=== PATIENT | female | born 1990 | race Caucasian/White ===

== ENCOUNTER 2019-10-19 17:03 | Emergency (ER) | payer MEDICAID ==
[~2019-10-19] VITALS: Ht 167.6 cm; Wt 72.8 kg
[~2019-10-19 17:03] MED LIST: CETI-90 PO; DICY10CA88 PO; DOCU-20 PO; KEP500T PO; LEVO1TBD6 PO; MELA3TAB64 PO; OMEP20CA4 PO; ONDA4TAB12 PO; PANT20TA3 PO; VITA-268 PO
[2019-10-19 17:40] LABS: BASOPHILS % (AUTO) 0.1 % (0-1); LYMPHOCYTES # (AUTO) 0.9 X10'3 (1.1-4.8); MONOCYTES # (AUTO) 0.6 X10'3 (0-0.9)
[2019-10-19 17:42] LABS: EOSINOPHILS # (AUTO) 0.1 X10'3 (0-0.9); EOSINOPHILS % (AUTO) 0.4 % (0-6); HEMATOCRIT 42.6 % (35.0-45.0); HEMOGLOBIN 14.9 g/dl (12.0-16.0); LYMPHOCYTES % (AUTO) 4.7 % (21-51); MEAN CORPUSCULAR HEMOGLOBIN 30.8 PG (27.0-31.0); MEAN CORPUSCULAR HGB CONC 34.9 g/dL (33.0-36.5); MEAN CORPUSCULAR VOLUME 88.1 FL (78-98); MONOCYTES % (AUTO) 3.2 % (2-12); NEUTROPHILS # (AUTO) 17.7 X10'3 (1.8-7.7); NEUTROPHILS % (AUTO) 91.6 % (42-75); PLATELET COUNT 396 X10'3 (140-440); RED BLOOD COUNT 4.83 X10'6 (4.20-5.60); RED CELL DISTRIBUTION WIDTH 12.8 % (11.5-14.5); WHITE BLOOD COUNT 19.4 X10'3 (4.5-11.0)
[2019-10-19 17:57] LABS: ALANINE AMINOTRANSFERASE 25 U/L (12-78); ALBUMIN/GLOBULIN RATIO 1.2 (1.1-1.5); ALKALINE PHOSPHATASE 101 IU/L (46-116); ANION GAP 17 (8-16); ASPARTATE AMINO TRANSFERASE 16 U/L (10-37); BILIRUBIN,TOTAL 1.4 MG/DL (0.1-1.0); BLOOD UREA NITROGEN 16 MG/DL (7-18); BUN/CREATININE RATIO 13.3 (6.6-38.0); CALCIUM 10.5 MG/DL (8.5-10.1); CHLORIDE 107 MMOL/L (99-107); GLUCOSE 127 MG/DL (70-104); LIPASE 56 U/L (73-393); SODIUM 144 MMOL/L (135-145); TOTAL CARBON DIOXIDE 19.6 MMOL/L (24-32); TOTAL PROTEIN 9.2 G/DL (6.4-8.2); eGFR 53 ML/MIN
[2019-10-19] MEDS: diphenhydrAMINE 50 mg/ml inj IM ONE (19:34)
[2019-10-19] MEDS: haloperidol lactate 5mg/ml inj IM ONE (19:34)
[2019-10-19] MEDS: normal saline 1000ml 1,000 ML IV ONE (19:35)
--- NOTE | 2019-10-19 19:41 | NUR ---
PT GIVEN HALDOL 5 MG IM AND BENEDRYL 50 MG IV AND 1ST OF 2 LITERS INFUSING VIA BOLUS. PTS AT BEDSIDE. SHE REPORTS HE PAIN IS 5 OUT OF 10 TO MID ABDOMEN. VSS.
[2019-10-19] MEDS: normal saline 1000ML IV soln IVB ONE (19:46)
[2019-10-19 20:52] LABS: URINE HCG NEGATIVE (NEG)
[2019-10-19 20:58] LABS: CLARITY,URINE CLOUDY (Clear); COLOR,URINE AMBER (Yellow); GLUCOSE, URINE NEGATIVE (Neg); KETONES,URINE >=80 mg/dl (Neg); LEUKOCYTE ESTERASE ,URINE SMALL (Neg); NITRITES, URINE NEGATIVE (Neg); OCCULT BLOOD,URINE LARGE (Neg); PROTEIN,URINE 100 mg/dl (Neg); UROBILINOGEN,URINE 0.2 E.U/dL (0.2-1.0)
[2019-10-19 21:04] LABS: UA COLLECTION TYPE CLN CATCH MIDSTREAM
[2019-10-19 21:05] LABS: BACTERIA,URINE FEW /HPF (Neg); RBC,URINE 50-100 /HPF (0-2); SQUAMOUS EPITHELIAL CELL,UR MODERATE /LPF (FEW); WBC,URINE 0-4 /HPF (0-4)
[2019-10-19 21:06] LABS: MUCUS STRANDS MANY /LPF (Neg)
[2019-10-19] MEDS ORDERED: ONDA4TAB6 PO (21:27)
[2019-10-19 22:05] VITALS: BP 133/76
== END 2019-10-19 22:06 | disposition home or self-care (01) ==
LOC: ER 17:04
DX: R11.15 Cyclical vomiting syndrome unrelated to migraine (principal); R10.13 Epigastric pain; R10.31 Right lower quadrant pain; F12.90 Cannabis use, unspecified, uncomplicated; Z79.899 Other long term (current) drug therapy; Z88.1 Allergy status to other antibiotic agents; Z88.5 Allergy status to narcotic agent
CPT/HCPCS: 36415; 74176; 80053; 81001; 81025; 83690; 85025; 87088; 96361; 96372; 96374; 99284; J1200; J1630; J7030

== ENCOUNTER 2019-10-21 05:28 | Emergency (ER) | payer MEDICAID ==
[~2019-10-21] VITALS: Ht 167.6 cm; Wt 77.2 kg
[~2019-10-21 05:28] MED LIST changes: +ONDA4TAB6 PO
[2019-10-21] MEDS ORDERED: haloperidol lactate 5mg/ml inj IM ONE (05:45)
[2019-10-21] MEDS ORDERED: normal saline 1000ML IV soln IVB ONE (05:45)
[2019-10-21] MEDS ORDERED: ondansetron/PF 4mg/2ml inj IV ONE (05:45)
[2019-10-21] MEDS ORDERED: diphenhydrAMINE 50 mg/ml inj IV ONE (05:45)
[2019-10-21] MEDS ORDERED: LORazepam 2 mg/ml vial IV ONE (05:45)
[2019-10-21 06:09] LABS: BASOPHILS # (AUTO) 0.2 X10'3 (0-0.2); EOSINOPHILS % (AUTO) 0.1 % (0-6); HEMATOCRIT 40.2 % (35.0-45.0); LYMPHOCYTES # (AUTO) 3.5 X10'3 (1.1-4.8); LYMPHOCYTES % (AUTO) 35.6 % (21-51); MEAN CORPUSCULAR HEMOGLOBIN 30.7 PG (27.0-31.0); MEAN CORPUSCULAR HGB CONC 34.8 g/dL (33.0-36.5); MEAN CORPUSCULAR VOLUME 88.2 FL (78-98); MEAN PLATELET VOLUME 9.5 FL (7.4-10.4); MONOCYTES # (AUTO) 0.7 X10'3 (0-0.9); MONOCYTES % (AUTO) 7.5 % (2-12); NEUTROPHILS # (AUTO) 5.4 X10'3 (1.8-7.7); NEUTROPHILS % (AUTO) 54.8 % (42-75); PLATELET COUNT 344 X10'3 (140-440); RED BLOOD COUNT 4.56 X10'6 (4.20-5.60); RED CELL DISTRIBUTION WIDTH 12.9 % (11.5-14.5); WHITE BLOOD COUNT 9.8 X10'3 (4.5-11.0)
[2019-10-21 06:15] LABS: ALANINE AMINOTRANSFERASE 29 U/L (12-78); ALBUMIN 4.4 G/DL (3.4-5.0); ALBUMIN/GLOBULIN RATIO 1.2 (1.1-1.5); ALKALINE PHOSPHATASE 82 IU/L (46-116); ANION GAP 13 (8-16); ASPARTATE AMINO TRANSFERASE 23 U/L (10-37); BILIRUBIN,TOTAL 0.8 MG/DL (0.1-1.0); BLOOD UREA NITROGEN 10 MG/DL (7-18); BUN/CREATININE RATIO 9.8 (6.6-38.0); CALCIUM 9.8 MG/DL (8.5-10.1); CHLORIDE 107 MMOL/L (99-107); CREATININE 1.02 MG/DL (0.40-0.90); GLUCOSE 94 MG/DL (70-104); LIPASE 112 U/L (73-393); POTASSIUM 3.5 MMOL/L (3.5-5.1); SODIUM 142 MMOL/L (135-145); TOTAL CARBON DIOXIDE 21.6 MMOL/L (24-32); TOTAL PROTEIN 8.1 G/DL (6.4-8.2); eGFR 64 ML/MIN
[2019-10-21 06:58] LABS: URINE HCG NEGATIVE (NEG)
[2019-10-21] MEDS ORDERED: METO5TAB98 PO (07:12)
[2019-10-21 07:24] VITALS: BP 117/76
== END 2019-10-21 07:27 | disposition home or self-care (01) ==
LOC: ER 05:29
DX: R11.15 Cyclical vomiting syndrome unrelated to migraine (principal); R10.84 Generalized abdominal pain; F12.90 Cannabis use, unspecified, uncomplicated; Z90.49 Acquired absence of other specified parts of digestive tract; Z88.1 Allergy status to other antibiotic agents; Z91.018 Allergy to other foods; Z79.899 Other long term (current) drug therapy
CPT/HCPCS: 36415; 80053; 81025; 83690; 85025; 96361; 96372; 96374; 96375; 99284; J1200; J1630; J2060; J2405; J7030

== ENCOUNTER 2019-10-22 08:54 | Emergency (ER) | payer MEDICAID ==
[~2019-10-22] VITALS: Ht 167.6 cm; Wt 74.3 kg
[~2019-10-22 08:54] MED LIST changes: +METO5TAB98 PO
[2019-10-22 08:59] VITALS: BP 130/76
[2019-10-22] MEDS ORDERED: haloperidol lactate 5mg/ml inj IM ONE (09:45)
[2019-10-22] MEDS ORDERED: diphenhydrAMINE 50 mg/ml inj IM ONE (09:45)
[2019-10-22] MEDS ORDERED: LORazepam 2 mg/ml vial IM ONE (09:45)
[2019-10-23] MEDS ORDERED: ONDA4TAB6 PO (01:19)
[2019-10-23] MEDS ORDERED: PHE25R PR (01:19)
== END 2019-10-22 11:34 | disposition home or self-care (01) ==
LOC: ER 08:54
DX: R11.15 Cyclical vomiting syndrome unrelated to migraine (principal); R19.7 Diarrhea, unspecified; R10.84 Generalized abdominal pain; F12.90 Cannabis use, unspecified, uncomplicated; Z79.899 Other long term (current) drug therapy; Z88.1 Allergy status to other antibiotic agents; Z88.6 Allergy status to analgesic agent; Z91.018 Allergy to other foods; Z91.011 Allergy to milk products; Z90.49 Acquired absence of other specified parts of digestive tract
CPT/HCPCS: 96372; 99283; J1200; J1630; J2060

== ENCOUNTER 2019-10-22 22:35 | Emergency (ER) | payer MEDICAID ==
[~2019-10-22] VITALS: Ht 167.6 cm; Wt 77.3 kg
[2019-10-22] MEDS ORDERED: ringers solution, lactated 1000ml IV soln IV ONE ×2 (22:50→23:30)
[2019-10-22] MEDS ORDERED: haloperidol lactate 5mg/ml inj IM ONE (22:50)
[2019-10-22] MEDS ORDERED: metoclopramide 5 mg/ml inj IV ONE (22:50)
[2019-10-22 23:22] LABS: ALBUMIN 4.7 G/DL (3.4-5.0); ANION GAP 9 (8-16); BLOOD UREA NITROGEN 7 MG/DL (7-18); BUN/CREATININE RATIO 7.4 (6.6-38.0); CALCIUM 9.6 MG/DL (8.5-10.1); CHLORIDE 106 MMOL/L (99-107); CREATININE 0.95 MG/DL (0.40-0.90); GLUCOSE 100 MG/DL (70-104); POTASSIUM 3.2 MMOL/L (3.5-5.1); SODIUM 145 MMOL/L (135-145); TOTAL CARBON DIOXIDE 29.9 MMOL/L (24-32); eGFR 69 ML/MIN
[2019-10-22] MEDS ORDERED: potassium Cl 20 mEq SR tablet PO STA (23:27)
[2019-10-23 00:46] LABS: URINE AMPHETAMINE SCREEN NEGATIVE (Neg); URINE BARBITUATE SCREEN NEGATIVE (Neg); URINE BENZODIAZEPINES SCREEN NEGATIVE (Neg); URINE CANNABINOID SCREEN POSITIVE (Neg); URINE COCAINE SCREEN NEGATIVE (Neg); URINE METHADONE SCREEN NEGATIVE (Neg); URINE OPIATE SCREEN NEGATIVE (Neg); URINE PHENCYCLIDINE SCREEN NEGATIVE (Neg)
[2019-10-23] MEDS ORDERED: PHE25R PR (01:19)
[2019-10-23] MEDS ORDERED: ONDA4TAB6 PO (01:19)
[2019-10-23 02:03] VITALS: BP 116/91
== END 2019-10-23 02:05 | disposition home or self-care (01) ==
LOC: ER 22:35
DX: R11.15 Cyclical vomiting syndrome unrelated to migraine (principal); E87.6 Hypokalemia; R19.7 Diarrhea, unspecified; R10.13 Epigastric pain; F12.10 Cannabis abuse, uncomplicated; Z88.1 Allergy status to other antibiotic agents; Z88.6 Allergy status to analgesic agent; Z91.018 Allergy to other foods; Z91.011 Allergy to milk products; Z79.899 Other long term (current) drug therapy; Z90.49 Acquired absence of other specified parts of digestive tract
CPT/HCPCS: 36415; 80048; 80305; 96361; 96372; 96374; 99283; J1630; J2765; J7120

== ENCOUNTER 2025-07-20 03:57 | Inpatient (IN) | payer MEDICAID ==
[~2025-07-20] VITALS: Ht 167.6 cm; Wt 87.3 kg
[~2025-07-20 03:57] MED LIST changes: -DOCU-20 PO; +DOCU-348 PO; +MELA3TAB39 PO; -MELA3TAB64 PO; -METO5TAB98 PO; +ONDA-243 PO; -ONDA4TAB12 PO; +PANT20TA18 PO; -PANT20TA3 PO; +PHE25R PR
--- NOTE | 2025-07-20 04:07 | Physician Documentation ---
History of Present Illness ~ General Stated Complaint: ABDOMINAL PAIN Time Seen by MD: 03:58 Primary Medical Doctor: Cortez Calhoun History of Present Illness Initial Comments Patient presents to the emergency room for evaluation for possible appendicitis sent from [facility]. Patient came in with abdominal pain nausea and vomiting. History of cyclical vomiting. CT scan shows appendix upper limit of normal with a white blood cell count of 25. Flagyl and Rocephin administered. Medication Reconciliation Allergies: Coded Allergies: amoxicillin (Verified Allergy, Unknown, 10/22/19) codeine (Verified Allergy, Unknown, 10/22/19) Uncoded Allergies: BEEF, PORK (Adverse Reaction, Intermediate, 04/11/15) CONSTIPATION DAIRY (Adverse Reaction, Intermediate, 04/11/15) CRAMPING, DIARRHEA Scheduled Cetirizine HCl (Zyrtec), 1 TABLET PO DAILY, (Reported) Dicyclomine Hcl* (Bentyl*), 1 CAP PO TID Docusate Sodium (Docusate Sodium), 1 CAP PO HS, (Reported) Levetiracetam (Keppra), 1 TABLET PO BID Levonorgestrel-Ethin Estradiol (Introvale 0.15-0.03 mg Tablet), 1 TAB PO DAILY, (Reported) Omeprazole (Prilosec), 1 CAP PO DAILY, (Reported) Ondansetron Hcl (Zofran), 1 TAB PO Q6H Pantoprazole Sodium (Protonix), 1 TAB PO DAILY Vitamin B Complex (B Complex), 1 EACH PO DAILY, (Reported) proMETHazine (PHENERGAN rectal suppository), 25 MG MS Q6H Scheduled PRN Melatonin (Melatonin), 1 TABLET PO HS PRN for sleep, (Reported) ONDANSETRON ODT 4mg tablet (Ondansetron Odt), 1 TABLET PO Q6H PRN for na usea/vomiting Ondansetron Hcl (Zofran), 1 TAB PO Q6H PRN for nausea/vomiting Past Medical History Past Medical History: *GI/HEPATOBILIARY* Past Surgical History: cholecystectomy Alcohol Use: Occasionally Drug Use: marijuana Lives with: Family Lives In: Home Occupation: employed Review of Systems ROS All review of systems negative except as per HPI Physical Exam Physical Exam Physical Exam General: Patient is awake, alert, oriented x4 in no acute distres\ Head: Normocephalic and atraumatic. Eyes: Conjunctival normal. EOMI. PERRL. ENT: Mucous membranes moist. Neck: Supple, trachea is midline. Chest: Clear to auscultation bilaterally without rales, rhonchi, or wheezes. There is no accessory muscle use or retractions. Cardiac: RRR without murmurs, gallops, or rubs. Abd: Soft, nondistended, nontender, diffuse abdominal tenderness without peritonitis Medical Decision Making Additional info obtained from: other Findings Patient presents to the emergency room for evaluation for possible appendicitis transfer from [facility]. We will admit for further investigation and possible surgery. Differential Diagnosis Cyclic vomiting, electrolyte disturbances, viral syndrome, dehydration Departure Admitted to Inpatient Unit: yes, to hospitalist Impression: Primary Impression: Appendicitis Condition: Guarded Referrals: NO PRIMARY CARE PROVIDER (PCP) Critical Care Note Total Time (mins): 30 Critical Care Note The note accurately reflects work and decisions made by me.Elia Soto MD 07/20/25 04:07 Signature Scribe Signature: No scribe Attestation: The note accurately reflects work and decisions made by me.Elia Soto MD 07/20/25 04:05 ELIA SOTO MD Jul 20, 2025 04:07
[2025-07-20 04:42] LABS: MEAN PLATELET VOLUME 9.1 FL (7.4-10.4); RED CELL DISTRIBUTION WIDTH 13.9 % (11.5-14.5)
[2025-07-20] MEDS ORDERED: magnesium sulf-water 4G/100mL 100 ML IV PRN (04:45)
[2025-07-20] MEDS ORDERED: magnesium sulf-water 2g/50mL 50 ML IV PRN (04:45)
[2025-07-20] MEDS ORDERED: magnesium Cl slow-release 64mg tablet PO PRN (04:45)
[2025-07-20] MEDS ORDERED: potassium Cl 20 mEq SR tablet PO PRN ×2 (04:45)
[2025-07-20] MEDS ORDERED: magnesium hydroxide 30ml (MOM) UD suspension PO PRN (04:45)
[2025-07-20] MEDS ORDERED: mag hydrox/Alum hydrox/simeth 30ml oral suspension PO PRN (04:45)
[2025-07-20 04:52] LABS: CREATININE 0.72 MG/DL (0.40-0.90); TOTAL CARBON DIOXIDE 21.8 MMOL/L (24-32); eCRCL 101 ML/MIN; eGFR > 90 ML/MIN
[2025-07-20] MEDS ORDERED: ESCI20TA PO (04:52)
[2025-07-20] MEDS: normal saline 1000ml 1,000 ML IV SCH ×2 (05:06→06:15)
[2025-07-20] MEDS: acetaminophen 1,000mg/100ml IV 100 ML IV ONE (05:06)
[2025-07-20] MEDS: ketorolac trometh 15mg/ml vial 15 MG/ML ML IV ONE ×2 (05:06→10:37)
--- NOTE | 2025-07-20 05:16 | HISTORY AND PHYSICAL-Residence ---
History & Physical Providers to CC Resident Creating Document: NADIA PIERRE RES ~ History of Present Illness Primary Medical Doctor: Cortez Calhoun Reason for Admit\Complaint: abd pain History of Present Illness 34 year old female with history of cyclic vomiting transferred from [facility] for higher level of care. Patient reported she had vomiting since yesterday morning and around noon her abdominal pain started she describes it as a cramping intermittent pain which was non positional, non radiated, last for 20 minutes, severity of the pain is eight of 10 when it is severe and it goes down to 3-4 in between episodes. She denied any fever or chills, constipation diarrhea or any changes in urinary symptoms. She reported she had about 10 times vomiting since yesterday which was nonbloody and contain food. She had multiple episode of cyclic vomiting since last year, she is smoking marijuana and last smoked was yesterday, denied any drinking alcohol or any other recreational drug. She started using GLP 1 analog injection since last April and two weeks ago she increase the dose of medication to 0.85, she does not know the brand name, she is using the compound medication. Allergies: Coded Allergies: amoxicillin (Verified Allergy, Unknown, 07/20/25) codeine (Verified Allergy, Unknown, 07/20/25) Uncoded Allergies: DAIRY (Adverse Reaction, Intermediate, 04/11/15) CRAMPING, DIARRHEA Home Medications Home Medications Active Reported Lexapro (Escitalopram Oxalate) 20 Mg Tablet 1 Tab PO DAILY 30 Days Melatonin 3 Mg Tablet 1 Tablet PO HS PRN B Complex (Vitamin B Complex) 1 Each Tablet 1 Each PO DAILY Past Medical History Past Medical History Cyclic vomiting She reported she had history of seizure and received Keppra with short period of time and her physician. It around three years ago she was not have any seizure after that. Past Surgical History Surgical History Comment Cholecystectomy Past Social History Smoking: Non-Smoker Alcohol Use: Occasionally Drug Use: Marijuana Lives with: Family Lives In: Home Occupation: employed ROS ROS Constitutional: No fever, dizziness, weakness. no change in appetite/weight HEENT: No blurring of the vision, No sore throat, epistaxis, tinnitus Cardiovascular: no chest pain/discomfort, palpitations, no syncope. No pedal edema Respiratory: No sob, cough,, hemoptysis Gastrointestinal: As HPI Genitourinary: No frquency, urgency, incontinence, nocturia. No dysuria, hematuria Musculoskeletal: No arthralgia, myalgia Endocrine: No polydipsia, polyuria. No heat or cold intolerance Neurologic: No headache, vertigo. No weakness, no numbness or tingling of extremities Psychiatric: No hallucinations/delusions, no anhedonia, no suicidal ideation Hematologic: No bleeding or bruises Exam Vitals: Vital Signs Date Time Temp Pulse Resp B/P (MAP) Pulse Ox O2 Delivery O2 Flow Rate FiO2 07/20/25 04:08 07/20/25 04:00 96.5 71 16 100 0 General: General: Awake and Alert, no acute distress. HEENT: Conjunctiva pink, Sclera clear, Mucus Membranes moist. Neck: Supple without masses and tenderness. Resp: Lungs clear to auscultation bilaterally. Heart: Regular Rate and rhythm, normal S1 and S2 Abdomen: Soft and non distended, mild tenderness periumbilical and epigastric area, negative McBurney sign, no guarding Extremities: No cyanosis,clubbing or edema. Skin: Warm and Dry. Neurological: Speech is clear, alert, and oriented x 4, no gross neurological deficits Diagnostic Data Last Recorded Lab Results: 07/20/25 0423 Advance Care Planning Advanced Care plannin - 30 Minutes Additional Plan 34-year-old female with history of cyclic vomiting transferred to the ED from [facility] due to abdominal pain and vomiting Abdominal pain and nausea vomiting Suspected appendicitis History of cyclic vomiting, current marijuana smoker Leukocytosis, elevated lactic acid CT scan from outside facility showed: 1, Borderline appendix with large appendicolith, without significant pre appendical stranding. Findings are equivocal for acute appendicitis. Correlated with local examination and white cell count. 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 #2 CV: - Patient hemodynamically stable; continue to monitor vitals. #3 Pulm: - Promote incentive spirometry (IS) use. - Maintain oxygen saturation >92%. #4 GI: Cyclic vomiting syndrome: Manage with appropriate antiemetics and hydration as needed. Suspected acute appendicitis: Consult surgery for further evaluation and management. - Continue ceftriaxone and flagyl for suspected appendicitis; adjust based on surgical findings. - NPO #5 Renal: - Monitor for acute kidney injury (RAZIA); ensure adequate hydration. - Replete electrolytes as needed. #6 ID: Ceftriaxone flagyl - Monitor for infection, particularly in light of suspected appendicitis. #7 Endo: - Maintain fingerstick glucose levels between 150-180 mg/dL. #8 Heme/Onc: - Monitor for bleeding and blood clots. - Maintain hemoglobin >7 g/dL and platelets >10 x 10^3/L. #9 PPx: - Chemical deep vein thrombosis prophylaxis. I saw this patient and completed a full visual exam via audio-visual HIPAA compliant technology. Date of Service: Jul 20, 2025 Billing Provider: EMILIA LAM MD, ELAHE, ANTONIO Jul 20, 2025 05:16 EMILIA LAM MD Jul 20, 2025 06:58
[2025-07-20] MEDS ORDERED: metroNIDAZOLE-Flagyl 500mg/NS 100 ML IV SCH (05:31)
[2025-07-20] MEDS: normal saline 1000ml 1,000 ML IVB ONE (05:42)
[2025-07-20] MEDS: potassium Cl 40MEQ/1/2NS 520ml 520 ML IV PRN (06:12)
[2025-07-20] MEDS: potassium Cl 40MEQ/1/2NS 520ml 520 ML IV ONE (06:14)
[2025-07-20 06:58] VITALS: BP 127/75; PULSE 77; RESP 14; TEMP 97.1; O2SAT 99
[2025-07-20] MEDS: docusate sod 100mg capsule PO SCH (08:00)
[2025-07-20] MEDS: K and/or MAG REPLACEMENT MC SCH (08:00)
[2025-07-20] MEDS: metroNIDAZOLE-Flagyl 500mg/NS 100 ML IV SCH (08:15)
[2025-07-20] MEDS: diatr meglu/diatrizoate 30ml oral sol.-(3 dose) bottle PO SCH (09:29)
[2025-07-20 10:00] VITALS: BP 128/74; PULSE 85; RESP 17; TEMP 97.2; O2SAT 95
[2025-07-20 11:18] LABS: HCG SERUM QL NEGATIVE
[2025-07-20] MEDS: ondansetron/PF 4mg/2ml inj IV PRN (15:29)
[2025-07-20] MEDS ORDERED: iohexol 300mg/ml 100ml inj. ONE (15:35)
--- NOTE | 2025-07-20 16:18 | RADIOLOGY REPORT ---
CLINICAL HISTORY: abdominal pain TECHNIQUE: CT of the abdomen and pelvis was performed with IV contrast. This exam was performed according to our departmental dose optimization program. Up-to-date CT equipment and radiation dose reduction techniques are utilized as appropriate. CTDI 25 DLP 1279 COMPARISON: None FINDINGS: Abdomen/Pelvis: The spleen, pancreas, adrenal glands, kidneys, liver, and uterus are unremarkable. Isodense fluid within the bladder related to CT performed at another institution. The abdominal aorta is normal in course and caliber. There are no significant atherosclerotic calcifications. There is no free intraperitoneal air or fluid. There is no enlarged abdominal or pelvic lymph node. There is no small bowel wall thickening or dilatation. The appendix is normal. There is [id number] pancolonic wall thickening. There is a small fat containing umbilical hernia. Other: The imaged lower thorax demonstrate very miniscule pleural fluid and mild atelectasis. There is a small hiatal hernia. No acute osseous abnormality is evident. IMPRESSION: [id number] pancolonic wall thickening, likely colitis. Small hiatal hernia.
[2025-07-20] MEDS: ketorolac trometh 15mg/ml vial 15 MG/ML ML IV PRN (17:58)
[2025-07-20 18:00] VITALS: BP 134/66; PULSE 92; RESP 20; TEMP 97.6; O2SAT 100
--- NOTE | 2025-07-20 20:23 | PROGRESS NOTE ---
Progress Note ID Providers to CC ~ Progress Note Progress Note: ct negative for appendcitis-call if needed INGRID CHIN MD Jul 20, 2025 20:23
[2025-07-20 22:00] VITALS: BP 116/66; PULSE 90; RESP 14; TEMP 98.1; O2SAT 98
[2025-07-21] VITALS (7 sets, daily range): BP systolic 105–139; BP diastolic 54–83; PULSE 67–87; RESP 16–40; TEMP 97.4–98.8; O2SAT 97–100
[2025-07-21 06:17] LABS: MEAN PLATELET VOLUME 9.4 FL (7.4-10.4); RED CELL DISTRIBUTION WIDTH 13.8 % (11.5-14.5)
[2025-07-21 06:32] LABS: CREATININE 0.65 MG/DL (0.40-0.90); TOTAL CARBON DIOXIDE 19.6 MMOL/L (24-32); eCRCL 112 ML/MIN; eGFR > 90 ML/MIN
[2025-07-21] MEDS: CefTRIAXone/D5W-Rocephin 1gm 50 ML IV SCH (06:59)
[2025-07-21 09:26] LABS: CHOL/HDL RATIO 3.1 (0.00-4.99); LDL CHOLESTEROL 64 MG/DL (50-100)
[2025-07-21] MEDS: sodium bicarbonate 1meq/ml inj 150 ML in dextrose 5%-water 1,000 ML IV SCH (11:21)
[2025-07-21] MEDS: diazepam inj 5 MG/ML inj. IV ONE (13:55)
--- NOTE | 2025-07-21 14:41 | PROGRESS NOTE- Residence ---
Progress Note - Resident Providers to CC Resident Creating Document: TREVOR LENTZ RES CC: LOGAN RUBIN MD ~ Antibiotic Timeout Antibiotic Ordered?: Yes Subjective Patient was seen and examined bedside; patient had multiple episodes of emesis and nausea. Discussed reports of CTA findings with the patient. No other acute overnight symptoms noted Objective Vital Signs Date Time Temp Pulse Resp B/P (MAP) Pulse Ox O2 Delivery O2 Flow Rate FiO2 07/21/25 13:55 16 07/21/25 08:00 Room Air 07/21/25 06:00 76 07/21/25 06:00 98.2 105/54 (71) 97 07/20/25 06:23 0 Result Diagram: 07/21/2553007/21/25530 General: Awake, oriented to person, place and time HEENT: Conjunctive are pink, sclerae clear, no icterus, pupil is equal in both sides, reactive to light, no ear discharge, no pharyngeal erythema or an edema. Neck: Supple, no JVD, no lymphadenopathy and thyromegaly. Chest: Equal air entry on both lungs, no additional sounds no rhonchi no wheezing at the moment. Cardiovascular: S1-S2 regular sinus rhythm and, regular rate, no gallops, no rubs, no murmurs Abdomen: No visible peristalsis, Bowel sounds present on auscultation, soft, no tenderness, no guarding, no rigidity; NO tenderness elicited today Extremities: No obvious deformities, no pitting edema bilaterally, capillary refill intact, peripheral pulsations are intact on both sides Neurologic: Mental status: alert and conscious, oriented to place, person and time, preserved memory, normal speech. Cranial nerves I-XII: Normal. Motor system: Preserved power, coordination, no evidenced involuntary movements, strength 5/5 in four extremities. Musculoskeletal: No joint swelling, deformities, inflammations, and no scoliosis and back tenderness Skin: Warm and dry. Dry oral mucosa. Advance Care Planning Advanced Care plannin - 30 Minutes Assessment Assessment 34-year-old female patient transferred from outside hospital for evaluation of acute appendicitis; Plan Plan Possible acute gastroenteritis Suspected appendicitis; ruled out Leukocytosis, trending down Inflammatory markers-procalcitonin and lactic acid within normal range CT scan from outside facility showed:Borderline appendix with large appendicolith, without significant pre appendical stranding. Subtle bowel wall thickening of the large bowel loops, suggestive of inflammatory bowel pathology. WBC was 25 in [facility], currently downtrended to 10.3 Dr. Danielson was consulted; recommended abdominal CT with oral and IV contrast 07/21/2025 CTA reported [id number] pancolonic wall thickening, likely colitis. Small hiatal hernia. Plan Continue ceftriaxone + metronidazole Discontinued patient's bicarb drip,as patient's bicarb was in the normal range Continue normal saline 100 mL/hour Continue ketorolac 15 mg q.6 H p.r.n. IV Continue pantoprazole 40 mg daily IV History of IBS Family history: Grandfather was diagnosed with the colon cancer; mother had multiple polyps Patient was diagnosed with IBS about five years back-mixed type of IBS Last colonoscopy was done five years ago which was normal Not on any treatment History of cyclic vomiting, current marijuana smoker Hypokalemia Patient continues to have multiple episodes of nausea and vomiting Patient is on protocol for replacement Zofran 4 mg q.6h p.r.n. History of depression and anxiety Continue patient's home medication escitalopram 20 mg Patient was given one dose of Valium 5 mg IV Allergy: Dietary, amoxicillin, codeine Code Status: Full DVT prophylaxis: Lovenox Analgesia/sedation: ketorolac Line/tube: Referral GI prophylaxis: Protonix Nutrition: NPO PT: Yes Prognosis: GUARDED Disposition: Continue monitoring the patient, patient will most likely get discharged tomorrow Trevor Lentz MD Internal Medicine Resident Date of Service: Jul 21, 2025 Billing Provider: LOGAN RUBIN MD Common Visit Codes: [id number] INP/OBS CARE(HIGH) TREVOR LENTZ, RES Jul 21, 2025 14:41 LOGAN RUBIN MD Jul 26, 2025 13:48
[2025-07-21] MEDS: propranolol 10mg tablet PO ONE (16:27)
[2025-07-21 19:02] LABS: CREATININE 0.53 MG/DL (0.40-0.90); TOTAL CARBON DIOXIDE 23.4 MMOL/L (24-32); eCRCL 137 ML/MIN; eGFR > 90 ML/MIN
[2025-07-21] MEDS: normal saline 1000ml 1,000 ML IV SCH (19:10)
[2025-07-22 06:00] VITALS: BP 121/70; PULSE 57; RESP 16; TEMP 96.4; O2SAT 97
[2025-07-22 06:40] LABS: MEAN PLATELET VOLUME 9.8 FL (7.4-10.4); RED CELL DISTRIBUTION WIDTH 14.3 % (11.5-14.5)
[2025-07-22 06:55] LABS: CREATININE 0.72 MG/DL (0.40-0.90); TOTAL CARBON DIOXIDE 21.7 MMOL/L (24-32); eCRCL 101 ML/MIN; eGFR > 90 ML/MIN
[2025-07-22] MEDS: enoxaparin 40mg/0.4ml syringe SUBCUT SCH (08:43)
[2025-07-22] MEDS: ESCITALOPRAM 10 mg tablet 10 MG TABLET PO SCH (08:44)
[2025-07-22 15:00] VITALS: BP 116/67; PULSE 64; TEMP 98.5; O2SAT 99
[2025-07-22 18:00] VITALS: BP 124/66; PULSE 72; RESP 18; TEMP 98.1; O2SAT 100
--- NOTE | 2025-07-22 18:24 | PROGRESS NOTE- Residence ---
Progress Note - Resident Providers to CC Resident Creating Document: TREVOR LENTZ RES CC: LOGAN RUBIN MD ~ Antibiotic Timeout Antibiotic Ordered?: Yes Subjective Patient was seen and examined bedside; patient had multiple episodes of emesis and nausea. We are treating her appropriately for her recurrent episodes of vomiting; No other acute overnight symptoms noted Objective Vital Signs Date Time Temp Pulse Resp B/P (MAP) Pulse Ox O2 Delivery O2 Flow Rate FiO2 07/22/25 15:00 98.5 64 116/67 (83) 99 Room Air 07/22/25 07:10 0.0 07/22/25 06:00 16 Result Diagram: 07/22/2548 07/22/25547 General: Awake, oriented to person, place and time HEENT: Conjunctive are pink, sclerae clear, no icterus, pupil is equal in both sides, reactive to light, no ear discharge, no pharyngeal erythema or an edema. Neck: Supple, no JVD, no lymphadenopathy and thyromegaly. Chest: Equal air entry on both lungs, no additional sounds no rhonchi no wheezing at the moment. Cardiovascular: S1-S2 regular sinus rhythm and, regular rate, no gallops, no rubs, no murmurs Abdomen: No visible peristalsis, Bowel sounds present on auscultation, soft, no tenderness, no guarding, no rigidity; NO tenderness elicited today Extremities: No obvious deformities, no pitting edema bilaterally, capillary refill intact, peripheral pulsations are intact on both sides Neurologic: Mental status: alert and conscious, oriented to place, person and time, preserved memory, normal speech. Cranial nerves I-XII: Normal. Motor system: Preserved power, coordination, no evidenced involuntary movements, strength 5/5 in four extremities. Musculoskeletal: No joint swelling, deformities, inflammations, and no scoliosis and back tenderness Skin: Warm and dry. Dry oral mucosa. Advance Care Planning Advanced Care plannin - 30 Minutes Assessment Assessment 34-year-old female patient transferred from outside hospital for evaluation of acute appendicitis; Plan Plan Possible acute gastroenteritis Suspected appendicitis; ruled out Leukocytosis, trending down Inflammatory markers-procalcitonin and lactic acid within normal range CT scan from outside facility showed:Borderline appendix with large appendicolith, without significant pre appendical stranding. Subtle bowel wall thickening of the large bowel loops, suggestive of inflammatory bowel pathology. WBC was [address] [facility], currently downtrended to 10.3 Dr. Danielson was consulted; recommended abdominal CT with oral and IV contrast 07/21/2025 CTA reported [id number] pancolonic wall thickening, likely colitis. Small hiatal hernia. Plan Continue ceftriaxone + metronidazole Patient's bicarb continues to be low after discontinuation bicarb drip; initiated patient on sodium bicarb 650 mg p.o. t.i.d. Continue normal saline 100 mL/hour Continue ketorolac 15 mg q.6 H p.r.n. IV Continue pantoprazole 40 mg daily IV b.i.d. History of IBS Family history: Grandfather was diagnosed with the colon cancer; mother had multiple polyps Patient was diagnosed with IBS about five years back-mixed type of IBS Last colonoscopy was done five years ago which was normal Not on any treatment History of cyclic vomiting, current marijuana smoker Hypokalemia Patient continues to have multiple episodes of nausea and vomiting; increased frequency compared to yesterday Patient is on protocol for replacement Patient received one dose of Reglan 10 mg and 5 mg q.8h p.r.n. Gave the patient one time dose of Benadryl 25 mg Increased patient's Protonix to twice a day Zofran 4 mg q.6h p.r.n. History of depression and anxiety Continue patient's home medication escitalopram 20 mg Patient was given one dose of Valium 5 mg IV Allergy: Dietary, amoxicillin, codeine Code Status: Full DVT prophylaxis: Lovenox Analgesia/sedation: ketorolac Line/tube: Referral GI prophylaxis: Protonix Nutrition: NPO PT: Yes Prognosis: GUARDED Disposition: Continue monitoring the patient, patient will most likely get discharged tomorrow Trevor Lentz MD Internal Medicine Resident Date of Service: Jul 22, 2025 Billing Provider: LOGAN RUBIN MD Common Visit Codes: [id number] INP/OBS CARE(HIGH) TREVOR LENTZ, RES Jul 22, 2025 18:24 LOGAN RUBIN MD Jul 26, 2025 13:48
[2025-07-22 20:00] VITALS: RESP 18; O2SAT 100
[2025-07-22 22:00] VITALS: BP 108/64; PULSE 58; RESP 15; TEMP 98.8; O2SAT 98
[2025-07-23 06:00] VITALS: BP 112/52; PULSE 58; RESP 15; TEMP 98.3; O2SAT 99
[2025-07-23 07:08] LABS: MEAN PLATELET VOLUME 10.1 FL (7.4-10.4); RED CELL DISTRIBUTION WIDTH 14.3 % (11.5-14.5)
[2025-07-23 07:29] LABS: CREATININE 0.59 MG/DL (0.40-0.90); TOTAL CARBON DIOXIDE 23.1 MMOL/L (24-32); eCRCL 123 ML/MIN; eGFR > 90 ML/MIN
[2025-07-23] MEDS ORDERED: magnesium Cl slow-release 64mg tablet PO PRN (07:50)
[2025-07-23] MEDS ORDERED: magnesium sulf-water 2g/50mL 50 ML IV PRN (07:50)
[2025-07-23] MEDS ORDERED: magnesium sulf-water 4G/100mL 100 ML IV PRN (07:50)
[2025-07-23] MEDS ORDERED: potassium Cl 20 mEq SR tablet PO PRN (07:50)
[2025-07-23] MEDS ORDERED: potassium Cl 40MEQ/1/2NS 520ml 520 ML IV PRN (07:50)
[2025-07-23] MEDS ORDERED: K and/or MAG REPLACEMENT MC SCH (08:00)
[2025-07-23] MEDS ORDERED: ONDA-243 PO (09:01)
[2025-07-23] MEDS ORDERED: METR-159 PO (09:01)
[2025-07-23] MEDS ORDERED: CEFD300C3 PO (09:01)
[2025-07-23] MEDS ORDERED: LACT1CAP26 PO (09:02)
[2025-07-23 10:00] VITALS: BP 108/62; PULSE 69; RESP 16; TEMP 98.9; O2SAT 99
[2025-07-23] MEDS: potassium Cl 20 mEq SR tablet PO PRN (11:03)
[2025-07-23 12:12] VITALS: RESP 16; O2SAT 99
[2025-07-23] MEDS ORDERED: PANT40TA54 PO (14:20)
[2025-07-23] MEDS ORDERED: MAGN500C4 PO (14:20)
[2025-07-23] MEDS ORDERED: POTA-208 PO (14:20)
[2025-07-23] MEDS ORDERED: Potassium Cl inj 40 MEQ in normal saline 500ml IV soln 500 ML IV ONE (14:25)
[2025-07-23] MEDS ORDERED: [UNRECOGNIZED DRUG - OTHER] IV ONE (14:30)
[2025-07-23] MEDS ORDERED: D5 IV ONE (14:30)
[2025-07-23] MEDS ORDERED: POTASSIUM CL IV ONE (14:30)
[2025-07-23] MEDS: potassium Cl 40MEQ/1/2NS 520ml 520 ML IV ONE (14:42)
--- NOTE | 2025-07-23 19:41 | DISCHARGE SUMMARY-Residence ---
Discharge Summary Providers to CC Resident Creating Document: TREVOR LENTZ, ANTONIO CC: LOGAN RUBIN MD ~ Discharge Summary Admission Diagnosis: CYCLIC NAUSEA VOMITING, POSSIBLE APPENDICITIS Hospital Course DATE OF ADMISSION: 07/20/2025 DATE OF DISCHARGE: 07/23/2025 Discharge Diagnosis\Comment: Possible acute gastroenteritis Suspected appendicitis; ruled out History of IBS History of cyclic vomiting, current marijuana smoker Hypokalemia History of depression and anxiety Operations\Procedures: None Consultants: Dr. Jhaveri Complications: None Condition on DC: Stable Discharge Summary: HPI as per admitting physician 34 year old female with history of cyclic vomiting transferred from [facility] for higher level of care. Patient reported she had vomiting since yes terday morning and around noon her abdominal pain started she describes it as a cramping intermittent pain which was non positional, non radiated, last for 20 minutes, severity of the pain is eight of 10 when it is severe and it goes down to 3-4 in between episodes. She denied any fever or chills, constipation diarrhea or any changes in urinary symptoms. She reported she had about 10 times vomiting since yesterday which was nonbloody and contain food. She had multiple episode of cyclic vomiting since last year, she is smoking marijuana and last smoked was yesterday, denied any drinking alcohol or any other recreational drug. She started using GLP 1 analog injection since last April and two weeks ago she increase the dose of medication to 0.85, she does not know the brand name, she is using the compound medication. Hospital course: 34 year old female with history of cyclic vomiting transferred from [facility] for higher level of care. Patient reported she had vomiting since yes terday morning and around noon her abdominal pain started she describes it as a cramping intermittent pain which was non positional, non radiated, last for 20 minutes, CT abdomen from outside hospital showed borderline appendix with large appendicolith, with elevated leukocytosis and inflammatory markers were elevated as well. Dr. Jhaveri was consulted and recommended abdominal CT with oral and IV contrast-which reported mild to moderate pancolonic wall thickening ruled out appendicitis. Patient was treated with ceftriaxone,metronidazole and Protonix. Patient's bicarb was low so we initiated the patient on bicarb drip and eventu ally transitioned to oral bicarb. Patient has history of IBS which was diagnosed five years ago mixed type of IBS, her last colonoscopy was done five years ago which was normal she does have a significant family history of grandfather who had colon cancer mother had multiple polyps. Patient has a history of cyclic vomiting she is an active marijuana smoker. Patient also had recurrent episodes of emesis during this admission and developed hypokalemia, we initiated the patient with the Reglan and Zofran. For hypokalemia we replaced potassium supplements as needed. Patient has a history of depression anxiety we continued her home medications citalopram. She started using GLP 1 analog injection since last April and two weeks ago she increase the dose of medication to 0.85, she does not know the brand name, she is using the compound medication. Significant imaging Abdominal pelvis CT 07/20/25 [facility]-di-[facility] pancolonic wall thickening, likely colitis. Small hiatal hernia. Vital Signs Date Time Temp Pulse Resp B/P (MAP) Pulse Ox O2 Delivery O2 Flow Rate FiO2 07/23/25 12:12 16 99 Room Air 07/23/25 10:00 98.9 69 108/62 (77) 07/23/25 07:20 0.0 Laboratory Tests Test 07/22/25 05:48 07/23/25 05:46 07/23/25 13:32 07/23/25 16:01 White Blood Count 7.9 X10'3 7.8 X10'3 Red Blood Count 4.39 X10'6 3.80 X10'6 Hemoglobin 12.9 g/dl 11.2 g/dl Hematocrit 37.6 % 32.9 % Mean Corpuscular Volume 85.8 FL 86.6 FL Mean Corpuscular Hemoglobin 29.5 PG 29.4 PG Mean Corpuscular Hemoglobin Concent 34.4 g/dL 34.0 g/dL Red Cell Distribution Width 14.3 % 14.3 % Platelet Count 389 X10'3 269 X10'3 Mean Platelet Volume 9.8 FL 10.1 FL Neutrophils (%) (Auto) 49.2 % 68.4 % Lymphocytes (%) (Auto) 39.8 % 22.1 % Monocytes (%) (Auto) 10.0 % 9.0 % Eosinophils (%) (Auto) 0.2 % 0 % Basophils (%) (Auto) 0.8 % 0.5 % Neutrophils # (Auto) 3.9 X10'3 5.3 X10'3 Lymphocytes # (Auto) 3.1 X10'3 1.7 X10'3 Monocytes # (Auto) 0.8 X10'3 0.7 X10'3 Eosinophils # (Auto) 0.0 X10'3 0.0 X10'3 Basophils # (Auto) 0.1 X10'3 0.0 X10'3 CBC Comment Sodium Level 143 MMOL/L 142 MMOL/L Potassium Level 3.4 MMOL/L 3.1 MMOL/L 3.1 MMOL/L 3.4 MMOL/L Chloride Level 110 MMOL/L 110 MMOL/L Carbon Dioxide Level 21.7 MMOL/L 23.1 MMOL/L Anion Gap 11 9 Blood Urea Nitrogen 5 MG/DL 6 MG/DL Creatinine 0.72 MG/DL 0.59 MG/DL Estimated GFR/1.73 m2 > 90 ML/MIN > 90 ML/MIN BUN/Creatinine Ratio 6.9 10.2 Glucose Level 106 MG/DL 90 MG/DL Calcium Level 8.3 MG/DL 7.7 MG/DL Magnesium Level 2.0 MG/DL 2.0 MG/DL Total Bilirubin 1.2 MG/DL 1.0 MG/DL Aspartate Amino Transf (AST/SGOT) 59 U/L 56 U/L Alanine Aminotransferase (ALT/SGPT) 67 U/L 76 U/L Alkaline Phosphatase 64 IU/L 53 IU/L Total Protein 7.9 G/DL 6.5 G/DL Albumin 4.1 G/DL 3.4 G/DL Globulin 3.8 G/DL 3.1 G/DL Albumin/Globulin Ratio 1.1 1.1 Chemistry Comments Discharge instructions Please follow up with the primary care doctor within a week Please recheck your CBC and CMP within a week before the follow up Please note you would need to get your colonoscopy done as per recommended by your primary care doctor Please note strict cessation of marijuana is recommended Please note we are discharging you on antibiotic cefdinir 300 mg q.12h for seven days and metronidazole 500 mg p.o. t.i.d. for seven days Culturelle p.o. b.i.d. for 30 days Please note we are sending you on acid suppressant drug pantoprazole 40 mg p.o. b.i.d. for for 15 days and once a day for 30 days Please take potassium chloride 20 mEq tablet once a day for 10 days and magnesium oxide 500 mg p.o. daily for 10 days please return to ED in case of increasing abdominal pain dizziness, shortness of breath Discharge medications New Medications: Cefdinir* 300 Mg Capsule Lactobacillus Rhamnosus (Culturelle) 10 Billion Cell Capsule Magnesium Oxide (Magnesium) 500 Mg Capsule Metronidazole* (Flagyl*) 500 Mg Tablet ONDANSETRON ODT 4mg tablet (Ondansetron Odt) 4 Mg Tab.rapdis Pantoprazole Sodium 40 Mg Tablet.dr Take pantoprazole 40 mg twice daily for the 1st 15 days and then once daily for the next one month. Potassium Chloride 20 Meq Tab.prt.sr Continued Medications: Escitalopram Oxalate (Lexapro) 20 Mg Tablet Melatonin 3 Mg Tablet Vitamin B Complex (B Complex) 1 Each Tablet *Problems/Diagnosis: (1) Gastroenteritis Status: Acute (2) Hypokalemia Status: Acute (3) Cyclical vomiting Status: Acute (4) Abdominal pain Status: Acute (5) Gastritis Status: Acute (6) Appendicitis Status: Acute Total Time Spent on D/C: Up to 30 Minutes Date of Service: Jul 23, 2025 Billing Provider: LOGAN RUBIN MD Common Visit Codes: 31837-MQT/OBS DISCH DAY >30min TREVOR LENTZ, RES Jul 23, 2025 19:38 LOGAN RUBIN MD Jul 26, 2025 13:48
== END 2025-07-23 17:15 | disposition home or self-care (01) | DRG 249 ==
LOC: ER 03:57 → ED HOLD 04:45 → EDBEDREQ 06:32 → ORTHO 4S 07:00
PROVIDERS: ADMIT Internal Medicine Pulmonary Disease; ATTEND Family Medicine
PROC: BW211ZZ Computerized Tomography (CT Scan) of Abdomen and Pelvis using Low Osmolar Contrast (ICD-10-PCS; principal; 2025-07-20)
DX: K52.89 Other specified noninfective gastroenteritis and colitis (principal); D72.829 Elevated white blood cell count, unspecified; E87.6 Hypokalemia; F32.A Depression, unspecified; F41.9 Anxiety disorder, unspecified; Z79.899 Other long term (current) drug therapy; Z88.1 Allergy status to other antibiotic agents; Z88.5 Allergy status to narcotic agent; Z91.014 Allergy to mammalian meats
CPT/HCPCS: 36410; 36415; 74177; 76937; 80053; 80061; 83605; 83690; 83735; 84132; 84145; 84443; 84703; 85025; 87081; 99291; A4333; A6250; A6258; C1751; G0378; J0131; J0696; J1650; J1885; J2405; J2470; J3360; J3480; J3490; J7030; J7040; J7070; Q0163; Q9963; Q9967